=== PATIENT | female | born 2000 | race Caucasian/White ===

== ENCOUNTER 2020-12-07 17:12 | Emergency (ER) | payer SELFPAY ==
[2020-12-07 17:24] VITALS: BP 124/82; PULSE 97; RESP 16; TEMP 37.1; O2SAT 100
--- NOTE | 2020-12-07 18:26 | ED.URI ---
HPI - URI/Sore Throat General Chief Complaint: Upper Respiratory Infection Stated Complaint: Sore Throat Time Seen by Provider: 12/07/20 17:55 Source: patient, RN notes reviewed and old records reviewed Mode of arrival: ambulatory Limitations: no limitations History of Present Illness HPI Narrative: 20 year old female who presents to [facility] care with complaints of sore throat since this morning with pain with swallowing. Patient reports no known fevers, chills or sweats, denies any ear pain, cough, sinus congestion or drainage. Patient reports that her throat aches rates her discomfort 4/10, has not taken any OTC counter medications for her discomfort. Patient does report history of strep throat in the past denies any known history of seasonal allergies.Patient reports no known exposure to sick contacts. MD elicited complaint: sore throat Related Data Home Medications Medication Instructions Recorded Confirmed levonorgestrel [Kyleena] 1 device INTRAUTERINE ONCE 12/07/20 12/07/20 Allergies Allergy/AdvReac Type Severity Reaction Status Date / Time No Known Allergies Allergy Verified 12/07/20 17:34 Review of Systems Review of Systems: CONSTITUTIONAL: Denies fever, chills, or sweats. EYES: Denies visual changes, redness, or discharge. ENT: Denies rhinorrhea, congestion,positive for sore throat, no otalgia. CARDIOVASCULAR: Denies chest pain, palpitations, or edema. RESPIRATORY: Denies cough or dyspnea. GASTROINTESTINAL: Denies abdominal pain, nausea, vomiting, or diarrhea. GENITOURINARY: Denies dysuria or hematuria. SKIN: Denies rash or itching. MUSCULOSKELETAL: Denies back pain, joint pain, or myalgia. NEUROLOGIC: Denies headache, numbness, or weakness. PSYCHIATRIC: Denies anxiety or depression. All systems reviewed & are unremarkable except as noted in HPI and below ENT: Comments: At time of signature, agree with nursing past medical, surgical, social and family history. There is no relevant family history pertinent to the presenting complaint PMF Past Medical History Medical History (Updated 12/12/20 @ 10:44 by Dorcas Bethea NP) Bronchitis Fracture of left fibula History of strep sore throat Surgical History Surgical History (Updated 12/12/20 @ 10:44 by Dorcas Bethea NP) No history of previous surgery Social History Social History (Updated 12/12/20 @ 10:43 by Dorcas Bethea NP) Tobacco type: e-cigarettes/vaping Alcohol intake: never Substance use: never Living arrangements: with family Gender identity (if verbalized by the patient): Female Comments At time of signature, agree with nursing past medical, surgical, social and family history. There is no relevant family history pertinent to the presenting complaint Exam Narrative: GENERAL: Well-appearing, well-nourished, and in no acute distress. HEAD: Normocephalic, atraumatic. EYES: PERRLA and EOMI. ENT: Nares clear, no rhinorrhea or epistaxis. Mucous membranes moist.TM's normal with good light reflex, throat red with white exudates or lesions on tonsils which are red and swollen NECK: Supple.no lymphadenopathy CHEST: Clear to auscultation. No respiratory distress.SAO2 100% on room air HEART: Regular rate and rhythm. No murmur heard. Normal peripheral pulses. ABDOMEN: Soft, nontender, nondistended, normal active bowel sounds. EXTREMITIES: Normal range of motion. No edema. SKIN: Warm, dry, no rash. NEURO: No focal deficits. Alert and oriented x3. Course Vital Signs Vital signs: Vital Signs Temperature 37.1 C 12/07/20 17:24 Pulse Rate 97 12/07/20 17:24 Respiratory Rate 16 12/07/20 17:24 Blood Pressure 124/82 12/07/20 17:24 Pulse Oximetry 100 12/07/20 17:24 Temperature 37.1 C 12/07/20 17:24 Pulse Rate 97 12/07/20 17:24 Respiratory Rate 16 12/07/20 17:24 Blood Pressure 124/82 12/07/20 17:24 Pulse Oximetry 100 12/07/20 17:24 MDM - URI/Sore Throat Differential Diagnosis Differenti
== END 2020-12-07 18:54 | disposition home or self-care (01) ==
PROVIDERS: Emergency Provider Registered Nurse
DX: J03.90 Acute tonsillitis, unspecified (principal)
CPT/HCPCS: 87081; 87880; 99213; G0463

== ENCOUNTER 2021-03-18 10:48 | Emergency (ER) | payer BC, SELFPAY ==
[2021-03-18 10:57] VITALS: BP 126/69; PULSE 104; RESP 16; TEMP 37.2; O2SAT 99
--- NOTE | 2021-03-18 11:50 | ED.URI ---
HPI - URI/Sore Throat General Chief Complaint: Upper Respiratory Infection Stated Complaint: Sore Throat Time Seen by Provider: 03/18/21 11:42 Source: patient and RN notes reviewed Mode of arrival: ambulatory Limitations: no limitations History of Present Illness HPI Narrative: Patient presents today complaint of a 2-day history of headache, sore throat, cough, congestion, rhinorrhea, ear pain. She currently rates her pain 8/10 and has been taking Advil, DayQuil, and NyQuil with some relief. She had a negative Covid test a week ago. MD elicited complaint: cough and sore throat Related Data Home Medications Medication Instructions Recorded Confirmed levonorgestrel [Kyleena] 1 device INTRAUTERINE ONCE 12/07/20 03/18/21 Allergies Allergy/AdvReac Type Severity Reaction Status Date / Time No Known Allergies Allergy Verified 03/18/21 11:25 Review of Systems Review of Systems: CONSTITUTIONAL: Denies body aches, fever, chills, or sweats. EYES: Denies visual changes, redness, or discharge. ENT: +, Congestion, rhinorrhea, ear pain CARDIOVASCULAR: Denies chest pain, palpitations, or edema. RESPIRATORY: Denies dyspnea.+ Cough GASTROINTESTINAL: Denies abdominal pain, nausea, vomiting, or diarrhea. GENITOURINARY: Denies dysuria or hematuria. SKIN: Denies rash, itching, or wounds. MUSCULOSKELETAL: Denies back pain, joint pain, or myalgia. NEUROLOGIC: Denies numbness, tingling, or weakness.+ Headache PSYCH: Denies depression or anxiety. [facility] Past Medical History Medical History Bronchitis Fracture of left fibula History of strep sore throat Surgical History Surgical History No history of previous surgery Social History Social History Tobacco type: e-cigarettes/vaping Alcohol intake: never Substance use: never Gender identity (if verbalized by the patient): Female Comments At time of signature, I have reviewed and agree with nursing past medical, surgical, social and family history unless otherwise noted. Please see nursing chart for further information. There is no relevant family history pertinent to the presenting complaint Exam Narrative: GENERAL: Mildly ill-appearing, well-nourished, and in no acute distress. HEAD: Normocephalic, atraumatic. EYES: EOMI. No redness or drainage. Conjunctivae normal. ENT: Mucous membranes pink and moist. Nares clear. No rhinorrhea. TMs normal bilaterally. Throat erythematous with mild edema. Tonsils 3+ without exudate. Uvula midline. NECK: Normal AROM. Supple. Bilateral anterior cervical chain lymphadenopathy. CHEST: No respiratory distress. Clear to auscultation. HEART: Regular rate and rhythm. No murmur appreciated. Normal peripheral pulses. EXTREMITIES: Normal range of motion. No edema. SKIN: Warm, dry, no rash. Capillary refill normal. Normal skin turgor. NEURO: No focal deficits. Alert and oriented x3. Gait steady. PSYCH: Normal affect. No signs of depression or anxiety. Course Vital Signs Vital signs: Vital Signs Temperature 98.9 F 03/18/21 10:57 Pulse Rate 104 H 03/18/21 10:57 Respiratory Rate 16 03/18/21 10:57 Blood Pressure 126/69 03/18/21 10:57 Pulse Oximetry 99 03/18/21 10:57 Temperature 98.9 F 03/18/21 10:57 Pulse Rate 104 H 03/18/21 10:57 Respiratory Rate 16 03/18/21 10:57 Blood Pressure 126/69 03/18/21 10:57 Pulse Oximetry 99 03/18/21 10:57 Reviewed. Pt has been instructed to follow up with her PCP regarding her elevated blood pressure today. MDM - URI/Sore Throat Differential Diagnosis Differential diagnosis: Likely upper respiratory infection, otitis media, sinusitis, pharyngitis and other (Strep throat) Lab Data Attestation: I reviewed the patient's lab results. Labs: Strep Screen Presumptive Nega
== END 2021-03-18 12:00 | disposition home or self-care (01) ==
PROVIDERS: Emergency Provider Nurse Practitioner
DX: J02.9 Acute pharyngitis, unspecified (principal); J06.9 Acute upper respiratory infection, unspecified; F17.200 Nicotine dependence, unspecified, uncomplicated
CPT/HCPCS: 87081; 87880; 99213; G0463

== ENCOUNTER 2021-04-21 03:08 | Emergency (ER) | payer BC, SELFPAY ==
--- NOTE | ~2021-04-21 | XR_ITS ---
EXAMINATION: XR foot LT min 3V DATE: 04/21/2021 03:41 INDICATION: Left fifth toe pain, initial encounter TECHNIQUE: Dorsoplantar, lateral, and 2 oblique views of the left foot were obtained. COMPARISON: None. FINDINGS: There is acute, traumatic, oblique fracture at the medial base of the fifth middle phalanx. The remainder of the fifth middle phalanx is slightly laterally subluxed with respect to the proxima l phalanx. Soft tissue swelling surrounds the fracture. No additional acute osseous abnormality is id entified. Tiny heterotopic ossific densities near the medial malleolus likely reflects sequela of ivory or fracture. IMPRESSION: 1. Oblique fracture at the medial base of the fifth middle phalanx with slight lateral subluxation of the middle phalanx with respect to the proximal phalanx. Reviewed, dictated and finalized at location A. [employer]
--- NOTE | 2021-04-21 03:21 | ED.GENADULT ---
HPI - General Adult General Chief complaint: Extremity Injury, Lower Stated complaint: left little toe pain/ lac Time Seen by Provider: 04/21/21 03:14 History of Present Illness HPI narrative: Patient is a 20-year-old female that presents the emergency department with chief complaint of injury to left toe. The patient reported that she had been drinking this evening going to multiple birthday parties and walk to the bathroom and passed out in the bathroom from her drinking the patient states when she woke up she realized that she had a laceration on her toe and her left left little toe hurt. The patient states he is really unsure of exactly what happened states he may have hit her head but reports that she has no headache right now and reports no other pain. Patient reports she is up-to-date on her tetanus status Related Data Home Medications Medication Instructions Recorded Confirmed levonorgestrel [Kyleena] 1 device INTRAUTERINE ONCE 12/07/20 03/18/21 Allergies Allergy/AdvReac Type Severity Reaction Status Date / Time No Known Allergies Allergy Verified 04/21/21 03:57 Review of Systems Review of Systems: A 10 system review of systems was completed on the patient and is negative except for what is stated in the HPI. Nursing and ancillary documentation was reviewed. PMFSH Past Medical History Medical History Bronchitis Fracture of left fibula History of strep sore throat Surgical History Surgical History No history of previous surgery Social History Social History Tobacco type: e-cigarettes/vaping Alcohol intake: never Substance use: never Gender identity (if verbalized by the patient): Female Exam Narrative: GENERAL: Well-appearing, well-nourished, and in no acute distress. HEAD: Normocephalic, atraumatic. EYES: PERRLA and EOMI. ENT: Nares clear, no rhinorrhea or epistaxis. Mucous membranes moist. NECK: Supple. CHEST: Clear to auscultation. No respiratory distress. HEART: Regular rate and rhythm. No murmur heard. Normal peripheral pulses. ABDOMEN: Soft, nontender, nondistended, normal active bowel sounds. EXTREMITIES: Normal range of motion. No edema. Small laceration fifth digit on the left foot SKIN: Warm, dry, no rash. NEURO: No focal deficits. Alert and oriented x3. PSYCH: Normal mood and affect. Course Course Emergency Course: Plain film x-rays of left foot shows a fracture of the middle phalanx with dislocation of the PIP joint Vital Signs Vital signs: Vital Signs Pulse Rate 77 04/21/21 03:55 Respiratory Rate 16 04/21/21 03:55 Blood Pressure 140/74 04/21/21 03:55 Pulse Oximetry 99 04/21/21 03:55 Pulse Rate 77 04/21/21 03:55 Respiratory Rate 16 04/21/21 03:55 Blood Pressure 140/74 04/21/21 03:55 Pulse Oximetry 99 04/21/21 03:55 Procedures Laceration Laceration 1: Date: 04/21/21 Time: 04:17 Site: lower extremity Side (If applicable): left Size (cm): 1 Description: linear Depth: involves muscle layer Local Anesthetic: lidocaine 1% Amount of anesthesia used (mL): 10 Pre-repair: wound explored and irrigated ====== Skin Level ====== Skin layer closed with: nylon Size (cm): 3-0 Number of sutures: 3 Technique: simple, interrupted ====== Subcutaneous Layer ====== ====== Muscle Layer ====== ====== Tendon Layer ====== Medical Decision Making Vital Signs Vital Signs: Vital Signs Pulse Rate 77 04/21/21 03:55 Respiratory Rate 16 04/21/21 03:55 Blood Pressure 140/74 04/21/21 03:55 Pulse Oximetry 99 04/21/21 03:55 Pulse Rate 77 04/21/21 03:55 Respiratory Rate 16 04/21/21 03:55 Blood Pressure 140/74 04/21/21 03:55 Pulse O
[2021-04-21 03:55] VITALS: BP 140/74; PULSE 77; RESP 16; O2SAT 99
[2021-04-21] MEDS: LIDOCAINE HCL 1% LOCAL INJ 20 ML VIAL 10 ML INFILTRATE (03:55)
== END 2021-04-21 05:15 | disposition home or self-care (01) ==
PROVIDERS: Emergency Provider Emergency Medicine
DX: S92.522B Displaced fracture of middle phalanx of left lesser toe(s), initial encounter for open fracture (principal); F17.290 Nicotine dependence, other tobacco product, uncomplicated; X58.XXXA Exposure to other specified factors, initial encounter
CPT/HCPCS: 12001; 73630; 99283; 99284

== ENCOUNTER 2024-07-18 14:19 | Emergency (ER) | payer BC, SELFPAY ==
[2024-07-18 14:23] VITALS: BP 132/84; PULSE 102; RESP 16; TEMP 37.1; O2SAT 100
--- NOTE | 2024-07-18 14:32 | ED_ITS ---
HPI - URI/Sore Throat General Chief Complaint: Upper Respiratory Infection Stated Complaint: Headache/Sore Throat Time Seen by Provider: 07/18/24 14:24 Source: patient, RN notes reviewed and old records reviewed Mode of arrival: ambulatory Limitations: no limitations History of Present Illness HPI Narrative: Patient presents with complaints of flu-like symptoms for 2 days. She has been taking [id number] medications with moderate relief. She reports that most bothersome symptom is sore throat. She is able to manage own secretions, no drooling or stridor noted. She appears uncomfortable, but is not any obvious distress Related Data Home Medications ?Medication ?Instructions ?Recorded ?Confirmed ?Last Taken ?Type levonorgestrel 17.5 mcg/24 hr (up 1 device intrauterine ONCE 12/07/20 04/30/21 Unknown History to 5 yrs) 19.5mg intrauterine device (Kyleena) Allergies Allergy/AdvReac Type Severity Reaction Status Date / Time No Known Allergies Allergy Verified 10/28/22 10:23 Review of Systems Review of Systems: All systems reviewed & are unremarkable except as noted in HPI and below Constitutional: Constitutional: Reports no additional constitutional compl aints, Reports body ache(s), Reports chills, Reports fever(s), Reports headache(s) and Reports lethargy ENT: Reports system reviewed and no additional complaints, except as documented, Reports nasal discharge and Reports sore throat Cardiovascular: Cardiovascular: Reports no additional cardiovascular complaints Respiratory: Respiratory: Reports no additional respiratory complaints Gastrointestinal: Gastrointestinal: Reports no additional gastrointestinal complaints PMF Past Medical History Medical History Bronchitis Fracture of left fibula History of strep sore throat Surgical History Surgical History No history of previous surgery Family History Family History Father Hypertension Social History Social History Social History: Single Years smoked: 3 Smoking status: Smoker, status unknown (Pt vapes) Tobacco type: e-cigarettes/vaping Alcohol intake: current Alcohol use details: Occasionally Substance use: never Substance use type: does not use Lack of Transportation: No Lack of Food: Never True Current Housing: I Have Housing Concerned About Future Housing: No Difficulty Paying Gas/Electric Bills: No Difficulty Paying for Meds: No Currently Unemployed: No Education: Decline to Answer Difficulty w/ Childcare or Family Care: No Living arrangements: with family Occupation/Education: occupation Gender identity (if verbalized by the patient): Female Sexual Orientation (if Verbalized by the Patient): Straight or Heterosexual Comments At the time of my signature, I reviewed and agree with the nursing past medical, surgical, social, and family history. There is no relevant family history pertinent to the patient complaint. Exam Const: General: cooperative, no acute distress, alert, awake and uncomfortable Orientation/consciousness: oriented to person, oriented to place and oriented to time HENMT: Head: normal to inspection Ears: TM's normal bilaterally Mouth: Yes moist mucous membranes Throat: abnormal tonsil bilateral erythema and hypertrophy 2+ and posterior oropharynx abnormal erythema Resp: Effort & Inspection: normal respiratory effort and able to speak in complete sentences Auscultation: clear to auscultation bilaterally, no crackles, no rales, no rhonchi and no wheezes Cardio: Palpation: normal PMI Rate: regular rate Rhythm: regular rhythm Heart sounds: S1 normal heart sound present and S2 normal heart sound present Neuro: General: oriented to person, oriented to place and oriented to time Cranial nerves: Yes CN's II-XII intact bilaterally Psych: Appearance: grossly normal Thought process: Normal thought process present Insight: Good insight present (Psych) Judgement: Good judgement present (Psych) Course Course Level of Care: Express Care Visit Vital Signs Vital signs: Vital Signs Temperature 98.7 F 07/18/24 14:23 Pulse Rate 102 H 07/18/24 14:23 Respiratory Rate 16 07/18/24 14:23 Blood Pressure 132/84 07/18/24 14:23 Pulse Oximetry 100 07/18/24 14:23 Oxygen Delivery Room Air 07/18/24 14:23 Temperature 98.7 F 07/18/24 14:23 Pulse Rate 102 H 07/18/24 14:23 Respiratory Rate 16 07/18/24 14:23 Blood Pressure 132/84 07/18/24 14:23 Pulse Oximetry 100 07/18/24 14:23 Oxygen Delivery Room Air 07/18/24 14:23 Reviewed MDM - URI/Sore Throat MDM Narrative Medical decision making narrative: Negative COVID, negative strep, culture pending. Positive influenza. On exam tonsils are hypertrophied, start prednisone. Prescription strength NSAIDs as well. Patient advised to go to emergency department with worsening symptoms Discharge instructions reviewed with patient, as well as provided in writing per nursing staff. The instructions also include specific and strict return/GO TO THE ER as well as f/u information. All questions have been answered, and the patient deny any further questions with discharge and discharge plan. Some parts of this dictation were generated by voice recognition software and may contain typographical and/or grammatical inaccuracies. Differential Diagnosis Differential diagnosis: Likely upper respiratory infection, otitis media, sinusitis, viral infection, influenza and pharyngitis Medical Records Attestation: I reviewed the patient's medical records. Lab Data Attestation: I reviewed the patient's lab results. Discharge Plan Discharge Clinical Impression: Influenza Patient Disposition: Home, Self-Care Condition: Stable Instructions: Antibiotic Form, Influenza (ED) Additional Instructions: Take medications as prescribed. Follow with primary care provider. Emergency department for new or worse symptoms Patient Language: Montenegrin Prescriptions: New prednisone 50 mg tablet 50 mg PO DAILY Qty: 5 0RF ibuprofen 800 mg tablet 800 mg PO TID PRN (Reason: pain) Qty: 30 0RF No Action Kyleena 17.5 mcg/24 hrs (5 yrs) 19.5 mg Intrauterine Device 1 device INTRAUTERINE ONCE Follow-up/Referrals: Tomas,Justina Murhpy MD [Primary Care Provider] - 2 Weeks Stand Alone Forms: Work/School Release IP Time of Disposition: 14:52
[2024-07-18 14:49] LABS: EDCOVIDSCREEN Negative (Negative); EDINFLUASCREEN Positive (Negative); EDINFLUBSCREEN Negative (Negative); EDSTREPNEGPOS1 Negative (Negative)
== END 2024-07-18 14:56 | disposition home or self-care (01) ==
PROVIDERS: Emergency Provider Nurse Practitioner Family; PCP Family Medicine
DX: J10.1 Influenza due to other identified influenza virus with other respiratory manifestations (principal); Z20.822 Contact with and (suspected) exposure to COVID-19; F17.290 Nicotine dependence, other tobacco product, uncomplicated
CPT/HCPCS: 87081; 87426; 87804; 87880; 99213; G0463